=== PATIENT | female | born 1990 | race Caucasian/White ===

== ENCOUNTER 2017-12-27 18:21 | Emergency (ER) | payer OTHER ==
[~2017-12-27] VITALS: Ht 182.9 cm; Wt 127.0 kg
[2017-12-27] MEDS ORDERED: BUMEX PO (19:27)
[2017-12-27] MEDS ORDERED: ALDACTONE25 MG PO (19:31)
[2017-12-27] MEDS ORDERED: LEVOTHYROXINE50 MCG PO (19:33)
[2017-12-27] MEDS ORDERED: BENTYL10 MG/1 ML IV (19:35)
[2017-12-27] MEDS ORDERED: NADALOL PO (19:36)
[2017-12-27] MEDS ORDERED: LOVENOX60 MG/0.6 SC (19:37)
[2017-12-27] MEDS ORDERED: PANTOPRAZOLE SO40 MG PO (19:38)
[2017-12-27] MEDS ORDERED: LOMOTIL TABLET1 EACH (19:40)
[2017-12-27] MEDS ORDERED: MORPHINE SULFATE 2 MG/ML SYR IV STA ×2 (20:07→22:12)
[2017-12-27] MEDS ORDERED: LACTATED RINGER'S 1,000 ML IV ONE ×3 (20:15→22:45)
[2017-12-27] MEDS ORDERED: PROMETHAZINE 12.5MG/ NACL 0.9% 12.5 MG/50 ML BAG IV ONE ×2 (20:15→23:30)
[2017-12-27] MEDS ORDERED: POTASSIUM CHLORIDE 20 MEQ TAB CR PO STA (23:30)
[2017-12-27] MEDS ORDERED: METRONIDAZOLE 500MG/NS 100ML 100 ML IV ONE (23:30)
[2017-12-27] MEDS ORDERED: CIPROFLOXACIN 400 MG/D5W 200ML 200 ML IV SCH (23:30)
[2017-12-28] MEDS ORDERED: MORPHINE SULFATE 2 MG/ML SYR IV STA (00:55)
[2017-12-28] MEDS ORDERED: CIPRO500 MG PO (01:00)
[2017-12-28] MEDS ORDERED: FLAGYL500 MG PO (01:01)
[2017-12-28] MEDS ORDERED: NORCO 7.5-3251 EACH PO (01:11)
[2017-12-28 01:38] VITALS: BP 130/73
== END 2017-12-28 01:25 | disposition home or self-care (01) ==
LOC: FSED 18:21
DX: R10.84 Generalized abdominal pain (principal); K52.9 Noninfective gastroenteritis and colitis, unspecified; J90 Pleural effusion, not elsewhere classified; E87.6 Hypokalemia; K21.9 Gastro-esophageal reflux disease without esophagitis; E03.9 Hypothyroidism, unspecified
CPT/HCPCS: 74178; 80053; 81025; 85025; 99283; J2270; J2550; J7120